=== PATIENT | female | born 2000 | race Two or more races ===

== ENCOUNTER 2021-09-18 16:38 | Outpatient (CLI) | payer OTHER | END 2021-09-18 16:42 | disposition home or self-care (01) | LOC: LAB 16:38 | PROVIDERS: ATTEND Obstetrics & Gynecology | DX: Z34.01 Encounter for supervision of normal first pregnancy, first trimester (principal); N92.1 Excessive and frequent menstruation with irregular cycle ==

== ENCOUNTER 2023-04-08 14:17 | Outpatient (CLI) | payer OTHER | END 2023-04-08 14:18 | disposition home or self-care (01) | LOC: LAB 14:17 | PROVIDERS: ATTEND Obstetrics & Gynecology | DX: N92.1 Excessive and frequent menstruation with irregular cycle (principal) ==